=== PATIENT | male | born 1975 ===

== ENCOUNTER 2016-07-26 14:53 | Emergency (ER) | payer OTHER ==
[2016-07-26 15:36] LABS: BASOPHILS 0.3 % (0.0-2.0); EOSINOPHILS 0.2 % (0.0-6.0); HEMATOCRIT 50.4 % (42.0-54.0); HEMOGLOBIN 17.4 g/dL (14.0-18.0); LYMPHOCYTES 26.1 % (20.0-40.0); LYMPHOCYTES# 2.9 X 10^3uL (0.8-3.8); MEAN CORPUS. HGB CONCENTRATION 34.5 g/dL (32.0-36.0); MEAN CORPUSCULAR HEMOGLOBIN 30.4 pg (29.0-35.0); MEAN PLATELET VOLUME 7.6 fL (7.4-10.4); MONOCYTES 7.4 % (2.0-10.0); MONOCYTES# 0.8 X 10^3uL (0.2-1.0); NEUTROPHILS# 7.3 X 10^3uL (2.6-6.7); PLATELET COUNT 296 X 10^3uL (130-440); RED BLOOD COUNT 5.73 X 10^6uL (4.20-6.10); RED CELL DISTRIBUTION WIDTH 11.9 % (11.5-14.5)
[2016-07-26 15:37] LABS: BLOOD UREA NITROGEN 18 mg/dL (9-20); CALCIUM 9.5 mg/dL (8.4-10.2); CHLORIDE 101 mmol/L (98-107); CREATININE 0.8 mg/dL (0.7-1.3); EST GLOMERULAR FILTRATION RATE > 60 mL/min; GLUCOSE 117 mg/dL (70-100); POTASSIUM 3.8 mmol/L (3.5-5.1); SODIUM 138 mmol/L (137-145)
--- NOTE | 2016-07-26 16:26 | CT REPORT ---
Radiology report CT neck with contrast July 26, 2016 PROCEDURE: 100 cc Isovue 370 was administered without complication. Imaging to the neck was performed . FINDINGS: History is of left neck pain Lung apices are clear. The aortic arch and origin of the great vessels appear normal. The thyroid gla nd is normal. The submandibular glands, and parotid glands are normal. The inferior aspect of the brain appears normal. Visualized paranasal sinuses and mastoid air cells a re clear. The prevertebral and parapharyngeal spaces are normal. The epiglottis, airway, and larynx a ppear normal. Scattered subcentimeter adenopathy is noted bilaterally. No significant enlarged adenop athy. There is normal alignment to the cervical spine. Heterogeneous appearance to the left jugular v ein is likely a mixture of contrast and unopacified blood. IMPRESSION: Unremarkable CT of the neck. No significant adenopathy, mass, or other areas to suggest i nfection. Report called to Dr. pandey. Final Electronic Signature: This report was electronically signed by Emory Boland MD on 07/26/2016 4: 24 PM. wes /
--- NOTE | 2016-07-26 17:08 | CT REPORT ---
Radiology report Head CT without contrast July 26, 2016 CLINICAL HISTORY: vertigo PROCEDURE: Routine noncontrast axial imaging of the brain was performed. FINDINGS: The brain volume and ventricular size are normal. There are no focal parenchymal abnormalit ies. No hemorrhage or infarction. There is no subdural or epidural collection, midline shift or mass effect. Skull is intact. The sinuses are clear. IMPRESSION: Negative head CT. Report called to Dr. pandey. Final Electronic Signature: This report was electronically signed by Emory Boland MD on 07/26/2016 5: 06 PM. wes /
--- NOTE | 2016-07-26 17:24 | ER PHYSICIAN DOCUMENTATION ---
Physician Documentation [facility] Name:Odilon Hill Age:41 yrs Sex:Male :1975 Arrival Date:07/26/2016 Time:14:53 Bed1 Private MD:Robbi Ramirez ED, Scott Disposition: 07/26/16 17:12 Discharged to Home/Self Care. Impression: Dizziness - Vertigo. - Condition is Fair. - Discharge Instructions: DIZZINESS, Unk Cause. - Medical Reconciliation form form. - Follow up: Robbi Ramirez MD; When: 1 - 2 days; Reason: Recheck today's complaints. - Problem is an acute exacerbation. - Symptoms are unchanged. HPI: 07/26 17:13 This 41 yrs old /[place] Male presents to ER via Private Vehicle with sc complaints of Neck Pain, >24Hrs Old. 17:13 The patient or guardian complains of pain, that is acute. The symptoms are located on sc the left base of the skull. Onset: The symptom(s)/episode began/occurred 3 day(s) ago. Context: The problem was sustained at home, The neck injury/problem resulted from URI symptoms. Associated signs and symptoms: Pertinent positives: mild dizziness and ataxia, no change in vision or stein or trauma or hearing, positive some frontal sinus pressure earlier. Historical: - Allergies: No known drug Allergies; - Home Meds: 1. None - PMHx: None; - PSHx: None; - Tetanus: > 10 years. - Ebola Screening: : Patient denies exposure to infectious person. Patient denies travel to an Ebola-affected area in the 21 days before illness onset. . - Social history: Smoking status: Patient states was never smoker of tobacco. Patient/guardian denies using alcohol, marijuana. ROS: 17:15 Constitutional: Negative for fever, chills, and weight loss. sc Eyes: Negative for injury, pain, redness, and discharge. Cardiovascular: Negative for chest pain, palpitations, and edema. Respiratory: Negative for shortness of breath, cough, wheezing, and pleuritic chest pain. Abdomen/GI: Negative for abdominal pain, nausea, vomiting, diarrhea, and constipation. Back: Negative for injury and pain. : Negative for injury, bleeding, discharge, and swelling. MS/Extremity: Negative for injury and deformity. 17:15 Skin: Negative for injury, rash, and discoloration. sc 17:15 ENT: Positive for nasal discharge. 17:15 Neck: Positive for swollen nodes, tenderness, Negative for injury or acute deformity, mass, pain with movement. 17:15 Neuro: Positive for dizziness, gait disturbance. Exam: Constitutional: This is a well developed, well nourished patient who is awake, alert, and in no acute distress. Head/Face: Normocephalic, atraumatic. Eyes: Pupils equal round and reactive to light, extra-ocular motions intact. Lids and lashes normal. Conjunctiva and sclera are non-icteric and not injected. Cornea within normal limits. Periorbital areas with no swelling, redness, or edema. ENT: Nares patent. No nasal discharge, no septal abnormalities noted. Tympanic membranes are normal and external auditory canals are clear. Oropharynx with no redness, swelling, or masses, exudates, or evidence of obstruction, uvula midline. Mucous membranes moist. Neck: Trachea midline, no thyromegaly or masses palpated, and no cervical lymphadenopathy. Supple, full range of motion without nuchal rigidity, or vertebral point tenderness. No meningismus. Chest/axilla: Normal chest wall appearance and motion. Nontender with no deformity. No lesions are appreciated. Cardiovascular: Regular rate and rhythm with a normal S1 and S2. No gallops, murmurs, or rubs. Normal PMI, no JVD. No pulse deficits. Respiratory: Lungs have equal breath sounds bilaterally, clear to auscultation and percussion. No rales, rhonchi or wheezes noted. No increased work of breathing, no retractions or nasal flaring. Abdomen/GI: Soft, non-tender, with normal bowel sounds. No distension or tympany. No guarding or rebound. No evidence of tenderness throughout. Back: No spinal tenderness. No costovertebral tenderness. Full range of motion. Skin: Warm, dry with normal turgor. Normal color with no rashes, no lesions, and no evidence of cellulitis. 17:16 MS/ Extremity: Pulses equal, no cyanosis. Neurovascular intact. Full, normal range sc of motion, negative Homans's, calves equal bilaterally. 17:16 Neuro: Cerebellar function: Romberg testing is abnormal, cannot stand with eyes closed, falls to left, walks to left with gait as well, Motor: is normal, Sensation: is normal, Gait: ataxic, Deep tendon reflexes are 2+ (normal) in the right patellar and left patellar, Babinski testing is normal. 07/27 09:04 Neck: External neck: swelling, of the , C-spine: Nexus Criteria: no distracting injury sc is present. 09:08 ENT: TM's: are normal, bulging, is not appreciated, Nose: nasal drainage, is not sc appreciated. 09:08 Neck: C-spine: no acute changes, vertebral tenderness, is not appreciated, ROM/movement: is normal, pain, that is mild, Lymph nodes: lymphadenopathy is appreciated, posterior cervical nodes. Vital Signs: 07/26 14:55 BP 136 / 89; Pulse 67; Resp 16; Temp 98.3; Pulse Ox 92% on R/A; Pain 1/10; st 16:30 BP 150 / 82; Pulse 69; Pulse Ox 91% on R/A; st 16:38 BP 134 / 84; st Cory Coma Score: 07/27 09:08 Eye Response: spontaneous(4). Verbal Response: oriented(5). Motor Response: obeys sc commands(6). Total: 15. MDM: 07/26 15:16 Patient medically screened. wa 17:17 Differential diagnosis: cervical strain, torticollis, viral meningitis, vs other sc central causes of vertigo vs ataxia, more consistent with recent uri and [facility] and back up today. Data reviewed: vital signs, nurses notes, old medical records, lab test result(s), radiologic studies, CT scan, and as a result, I will discharge patient. Counseling: I had a detailed discussion with the patient and/or guardian regarding: the historical points, exam findings, and any diagnostic results supporting the discharge/admit diagnosis, lab results, radiology results, the need for outpatient follow up, with the patient's primary care provider. 07/26 15:39 Order name: BASIC METABOLIC PANEL; Complete Time: 16:16 EDMS 07/26 16:16 Interpretation: Normal. sc 07/26 15:39 Order name: CBC AUTO DIF, MDIF/RMOR IF IND; Complete Time: 16:16 EDMS 07/26 16:16 Interpretation: Abnormal: WHITE BLOOD COUNT 11.0. wa 07/26 15:17 Order name: CT Scan;neck Softtissw/[id number] st 07/26 16:28 Order name: CAT SCAN;NECK SOFT TISSW/[id number] EDMS 07/26 17:09 Order name: CAT SCAN; HEAD W/O CON [id number] EDMS Dispensed Medications: 16:30 Drug: NS 0.9% 1000 ml; Route: IV; Rate: 250 ml/hr; Site: right antecubital; 17:22 Follow up: IV Status: Infusion discontinued; IV Intake: 300ml st Signatures: Moraima Love RN RN Jigar Yee MD MD wa
--- NOTE | 2016-07-26 17:24 | ER NURSING DOCUMENTATION ---
Nurse's Notes [facility] Name:Odilon Hill Age:41 yrs Sex:Male :1975 Arrival Date:07/26/2016 Time:14:53 Bed1 Private MD:Robbi Ramirez Diagnosis:Dizziness - Vertigo Presentation: 07/26 14:55 Presenting complaint: Patient states: pt states he has had left neck pain for [address] two days ago pt had 30 min of blurred vision and then today pt states he has not been able to walk. He leans to the left and has no balance he also has some pressure in his head. Transition of care: Home. Care prior to arrival: None. 14:55 Method Of Arrival: Private Vehicle st 15:05 Acuity: LARON 2 st 15:06 Notified ED Physician of Dr. Shaw notified. st Triage Assessment: 14:55 General: Appears in no apparent distress, Behavior is cooperative. Pain: Complains of st pain in headache Pain currently is 1 out of 10 on a pain scale. Pain began started about 10 min ago. Neuro: Level of Consciousness is awake, alert, Oriented to person, place, time, event, Customer Contact Representative are equal bilaterally Moves all extremities. Facial symmetry appears normal, pt has no change in sesation.. Neuro: Reports troubles with his balance.. Cardiovascular: No deficits noted. Respiratory: No deficits noted. GI: No deficits noted. Musculoskeletal: pt lists to the left when he walks but is able to correct himself. Historical: - Allergies: No known drug Allergies; - Home Meds: 1. None - PMHx: None; - PSHx: None; - Tetanus: > 10 years. - Ebola Screening: : Patient denies exposure to infectious person. Patient denies travel to an Ebola-affected area in the 21 days before illness onset. . - Social history: Smoking status: Patient states was never smoker of tobacco. Patient/guardian denies using alcohol, marijuana. Screenin:12 Infectious Disease Risk Other: hx of hep B. Abuse screen: Denies threats or abuse. st Denies injuries from another. pt feels safe at home. Nutritional screening: No deficits noted. Assessment: 17:09 General: pt resting quietly. . st Vital Signs: 14:55 BP 136 / 89; Pulse 67; Resp 16; Temp 98.3; Pulse Ox 92% on R/A; Pain 1/10; st 16:30 BP 150 / 82; Pulse 69; Pulse Ox 91% on R/A; st 16:38 BP 134 / 84; st Burket Coma Score: 07/27 09:08 Eye Response: spontaneous(4). Verbal Response: oriented(5). Motor Response: obeys sc commands(6). Total: 15. ED Course: 07/26 14:55 Patient arrived in ED. ama 14:55 Robbi Ramirez MD is Private Physician. ama 14:55 Valuables Remains with patient Patient has correct armband on for positive st identification. Bed in low position. Pulse Ox - RN Monitoring Only NIBP On - RN Monitoring Only. 15:05 Moraima Love, RN is Primary Nurse. st 15:[address] 15:16 Jigar Shaw MD is Attending Physician. sc 15:17 Inserted peripheral IV: 20 gauge in right antecubital area and blood collected. st 15:[address] pm1 15:42 CT Scan;neck Softtissw/[id number] Sent. pm1 16:14 Patient moved back from CT. ms 17:11 Robbi Ramirez MD is Referral Physician. sc Administered Medications: 16:30 Drug: NS 0.9% 1000 ml; Route: IV; Rate: 250 ml/hr; Site: right antecubital; st 17:22 Follow up: IV Status: Infusion discontinued; IV Intake: 300ml st Intake: 17:22 IV: 300ml; Total: 300ml. st Outcome: 17:12 Discharge ordered by . ok 17:20 Discharged to home ambulatory, with help from family st 17:20 Condition: stable 17:20 Discharge instructions given to patient, Instructed on discharge instructions, follow up and referral plans. 17:21 IV D/Rey st 17:23 Patient [address] the ED. st 03 07:45 Discharge F/U Call: Spoke with: other: Name: spouse called to say her 's nf symptoms were worsening today and they would like to see a neurologist as was offered yesterday; I notified DrChew by phone; I called the back and asked her which hospital they would like to go to and she chose [facility]; CT scan from yesterday "pushed" to [facility], and ER records from yesterday faxed to [facility] ER per patient's verbal request and 's verbal ok Signatures: Moraima Love RN RN st Friel, Nicole, RN RN nf Chew, Scott, MD MD sc [facility] Alexi Moore pm1 Amari Tomas, Reg Reg ama
== END 2016-07-26 17:24 | disposition home or self-care (01) ==
LOC: ER 14:53
DX: R42 Dizziness and giddiness (principal); M54.2 Cervicalgia; R59.0 Localized enlarged lymph nodes; R26.0 Ataxic gait
CPT/HCPCS: 70450; 70491; 80048; 85025; 96360; 99284

== ENCOUNTER 2016-09-08 02:15 | Emergency (ER) | payer OTHER ==
[2016-09-08] MEDS ORDERED: OXYMETAZOLINE 0.05% NASAL 15 SPRAYS/15 ML BTL NASAL ONE (02:41)
[2016-09-08] MEDS ORDERED: PHENYLEPHRINE 1% NASAL 15 SPRAYS/15 ML BTL NASAL ONE (02:42)
[2016-09-08] MEDS ORDERED: SILVER NITRATE 1 APP APP TOPICAL ONE (02:51)
[2016-09-08] MEDS ORDERED: AMOXICILLIN 250 MG CAPSULE PO ONE (03:08)
--- NOTE | 2016-09-08 03:18 | ER PHYSICIAN DOCUMENTATION ---
Physician Documentation [facility] Name:Odilon Hill Age:41 yrs Sex:Male :1975 Arrival Date:09/08/2016 Time:02:15 Bed2 Private MD:Sky Thomas ED, Chris Disposition: 09/08/16 03:02 Discharged to Home/Self Care. Impression: Anterior Epistaxis. - Condition is Good. - Discharge Instructions: EPISTAXIS (Adult), NASAL PACKING, Anterior (Removable). - Prescriptions for Amoxicillin 500 mg Oral - take 1 capsule by ORAL route every 8 hours for 3 days; 10 tablet. - Medical Reconciliation form form. - Follow up: Emergency Department; When: 09/11/2016; Reason: Recheck today's complaints, Continuance of care. - Problem is new. - Symptoms are resolved. - Notes: Drink plenty of fluids. Continue your Coumadin and Lovenox until directed by Dr. Thomas. Take Amoxicillin 500mg by mouth every 8 hours for 3 days. Return to the ER in3 days for packing removal HPI: 09/08 02:40 This 41 yrs old /[place] Male presents to ER via Walk In with complaints of cd Nose Bleed. 02:40 The patient presents with a nose bleed, that is apparently anterior, from the right cd nare, occurred dry air, spontaneously, that is continuous small amount without clots, causative factors include: Coumadin therapy, previous HX of nosebleeds, and the bleeding is not resolved and continues in ER. Onset: The symptom(s)/episode began/occurred acutely, 2 hour(s) ago. Associated signs and symptoms: The patient has no apparent associated signs or symptoms. Severity of symptoms: At their worst the symptoms were moderate in the emergency department the symptoms have improved mildly. The patient has experienced similar episodes in the past. 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 He has been doing very well post-CVA. Patient is on Plavix and Lovenox. Coumadin recently started by Dr. Thomas 3 days ago.. Historical: - Allergies: No known drug Allergies; - Home Meds: 1. Lovenox 100 mg/mL subcutaneous syrg 0.4 mL once daily 2. Coumadin Oral 3. gabapentin 300 mg oral cap 4. metformin 500 mg oral tab 1 tab 2 times per day with morning and evening meals 5. atorvastatin 40 mg oral tab 1 tab once daily 6. clopidogrel 75 mg oral tab 1 tab once daily 7. dextromethorphan HBr oral 8. pseudoephedrine HCl 30 mg oral tab 9. losartan oral - PMHx: ischemic stroke; - PSHx: None; - Tetanus: < 10 years. - Ebola Screening: : Patient negative for fever greater than or equal to 101.5 degrees Fahrenheit, and additional compatible Ebola Virus Disease symptoms. Patient denies exposure to infectious person. Patient denies travel to an Ebola-affected area in the 21 days before illness onset. No symptoms or risks identified at this time. . - Immunization history: Flu Vaccine < 1 year. - Social history: Smoking status: Patient states was never smoker of tobacco. Patient uses alcohol occasionally. ROS: 03:08 Eyes: Negative for injury, pain, redness, discharge, blurry vision and loss of vision. cd 03:08 Neck: Negative for injury, pain, stiffness and swelling. cd 03:08 Constitutional: Negative for chills, fever. 03:08 ENT: Positive for nose bleed, Negative for rhinorrhea, sinus congestion, sinus pain, sore throat. 03:08 All other systems are negative. Exam: Head/Face: Normocephalic, atraumatic. Eyes: Pupils equal round and reactive to light, extra-ocular motions intact. Lids and lashes normal. Conjunctiva and sclera are non-icteric and not injected. Cornea within normal limits. Periorbital areas with no swelling, redness, or edema. 03:08 Neck: Trachea midline, no thyromegaly or masses palpated, and no cervical cd lymphadenopathy. Supple, full range of motion without nuchal rigidity, or vertebral point tenderness. No Meningismus. 03:08 Constitutional: The patient appears alert, awake, non-diaphoretic, non-toxic, well developed, well nourished. 03:08 ENT: Nose: External nose: no obvious acute abnormality, Nasal septum: is midline, Nasal mucosa: normal, bleeding, is seen from the right nare, and is minimal, clotted blood, is not appreciated. Vital Signs: 02:25 BP 150 / 100; Pulse 84; Resp 16; Temp 98.3; Pulse Ox 96% on R/A; Weight 102.06 kg; mk2 Height 5 ft. 9 in. (175.26 cm); Pain 0/10; 02:25 Body Mass Index 33.23 (102.06 kg, 175.26 cm) mk2 Yannick Coma Score: 03:08 Eye Response: spontaneous(4). Verbal Response: oriented(5). Motor Response: obeys cd commands(6). Total: 15. Procedures: 03:09 Epistaxis treatment: A small amount of bleeding noted from right nare. Treated using cd anterior packing, nasal tampon, rhino rocket, Bleeding stopped. MDM: 03:02 Patient medically screened. cd 03:10 Data reviewed: vital signs, nurses notes, old medical records, lab test result(s), and cd as a result, I will discharge patient. Data interpreted: Pulse oximetry: on room air is 96 %. Interpretation: normal. Counseling: I had a detailed discussion with the patient and/or guardian regarding: the historical points, exam findings, and any diagnostic results supporting the discharge/admit diagnosis, lab results, the need for outpatient follow up, for a recheck, with the patient's primary care provider, to return to the emergency department if symptoms worsen or persist or if there are any questions or concerns that arise at home. Response to treatment: the patient's symptoms have resolved after treatment, the patient's condition has returned to base line, the patient is now symptom free, and as a result, I will discharge patient. 09/08 02:38 Order name: INR W/ CAPI DRAW; Complete Time: 03:12 EDMS 09/08 03:11 Interpretation: Abnormal: INR W/ CAPI DRAW 2.9; On Coumadin. cd Dispensed Medications: 02:53 Drug: Aram-Synephrine Cato 0.5 % 1 sprays; Route: Intranasal; Site: right nare; mk2 02:55 CANCELLED (Physician Discretion): Silver Nitrate Applicators 1 application Topical once mk2 02:59 Drug: Amoxicillin 500 mg; Route: PO; mk2 03:15 Follow up: Response: No adverse reaction mk2 Point of Care Testing: Blood Glucose: 02:29 Blood Glucose: 158 mg/dL; mk2 Ranges: Critical Glucose Levels:Adult <50 mg/dl or >400 mg/dl <40 mg/dl or >180 mg/dl Signatures: Baal Peralta MD MD cd Kruger, Meg, RN RN mk2
--- NOTE | 2016-09-08 03:18 | ER NURSING DOCUMENTATION ---
Nurse's Notes [facility] Name:Odilon Hill Age:41 yrs Sex:Male :1975 Arrival Date:09/08/2016 Time:02:15 Bed2 Private MD:Sky Thomas Diagnosis:Anterior Epistaxis Presentation: 09/08 02:18 Presenting complaint: Patient states: I'm on blood thinners and I've had a bloody nose 2 since 0030. Transition of care: Home. 02:18 Acuity: LARON 3 2 02:18 Method Of Arrival: Walk In [facility] 02:25 Care prior to arrival: None. mk2 Triage Assessment: 02:24 General: Appears in no apparent distress, Behavior is cooperative, pleasant. Pain: mk2 Denies pain. EENT: Reports blood dripping on R side of nose into the throat. . Historical: - Allergies: No known drug Allergies; - Home Meds: 1. Lovenox 100 mg/mL subcutaneous syrg 0.4 mL once daily 2. Coumadin Oral 3. gabapentin 300 mg oral cap 4. metformin 500 mg oral tab 1 tab 2 times per day with morning and evening meals 5. atorvastatin 40 mg oral tab 1 tab once daily 6. clopidogrel 75 mg oral tab 1 tab once daily 7. dextromethorphan HBr oral 8. pseudoephedrine HCl 30 mg oral tab 9. losartan oral - PMHx: ischemic stroke; - PSHx: None; - Tetanus: < 10 years. - Ebola Screening: : Patient negative for fever greater than or equal to 101.5 degrees Fahrenheit, and additional compatible Ebola Virus Disease symptoms. Patient denies exposure to infectious person. Patient denies travel to an Ebola-affected area in the 21 days before illness onset. No symptoms or risks identified at this time. . - Immunization history: Flu Vaccine < 1 year. - Social history: Smoking status: Patient states was never smoker of tobacco. Patient uses alcohol occasionally. Screenin:26 Infectious Disease Risk None. Abuse screen: Denies threats or abuse. Nutritional 2 screening: No deficits noted. Assessment: 02:26 See Triage Assessment done by same RN. mk2 Vital Signs: 02:25 BP 150 / 100; Pulse 84; Resp 16; Temp 98.3; Pulse Ox 96% on R/A; Weight 102.06 kg; mk2 Height 5 ft. 9 in. (175.26 cm); Pain 0/10; 02:25 Body Mass Index 33.23 (102.06 kg, 175.26 cm) mk2 Luther Coma Score: 03:08 Eye Response: spontaneous(4). Verbal Response: oriented(5). Motor Response: obeys cd commands(6). Total: 15. ED Course: 02:17 Patient arrived in ED. em2 02:17 Sky Thomas MD is Private Physician. em2 02:17 Danette Aguillon, RN is Primary Nurse. mk2 02:18 Triage completed. mk2 02:26 Arm band placed on Bed in low position Call Light in Reach Gowned HOB Elevated Side mk2 rails up x1. 02:26 Nosebleed Care Nasal Clamp Applied. mk2 02:28 Bedside INR 2.9. mk2 02:59 Bala Peralta MD is Attending Physician. cd 03:17 Valuables Remains with patient. mk2 Administered Medications: 02:53 Drug: Aram-Synephrine Hernando 0.5 % 1 sprays; Route: Intranasal; Site: right nare; mk2 02:55 CANCELLED (Physician Discretion): Silver Nitrate Applicators 1 application Topical once mk2 02:59 Drug: Amoxicillin 500 mg; Route: PO; mk2 03:15 Follow up: Response: No adverse reaction mk2 Point of Care Testing: Blood Glucose: 02:29 Blood Glucose: 158 mg/dL; mk2 Ranges: Outcome: 03:02 Discharge ordered by . cd 03:16 Discharged to home ambulatory. mk2 03:16 Condition: improved 03:16 Discharge instructions given to patient, Instructed on discharge instructions, follow up and referral plans. medication usage, Prescriptions given X 1. 03:17 Patient left the ED. mk2 Signatures: Bala Peralta MD MD cd Kruger, Meg, RN RN mk2 Iza-reg, Laurel-michelet em2
== END 2016-09-08 03:18 | disposition home or self-care (01) ==
LOC: ER 02:15
DX: R04.0 Epistaxis (principal); Z79.01 Long term (current) use of anticoagulants; Z86.73 Personal history of transient ischemic attack (TIA), and cerebral infarction without residual deficits; Z79.02 Long term (current) use of antithrombotics/antiplatelets; Z79.899 Other long term (current) drug therapy
CPT/HCPCS: 30903; 85610; 99283

== ENCOUNTER 2016-09-08 18:02 | Emergency (ER) | payer OTHER ==
--- NOTE | 2016-09-09 13:03 | ER NURSING DOCUMENTATION ---
Nurse's Notes [facility] Name:Odilon Hill Age:41 yrs Sex:Male :1975 Arrival Date:09/08/2016 Time:18:02 Bed2 Private MD: Diagnosis:Epistaxis - Nose Bleed Presentation: 09/08 18:09 Presenting complaint: Patient states: Pt here for recheck of nasal packing placed this ma am States is not comfortable and wants to remove it himself. Transition of care: Home. 18:09 Acuity: LARON 4 ma 18:09 Method Of Arrival: Private Vehicle ma Triage Assessment: 18:11 General: Appears in no apparent distress, Behavior is cooperative. Pain: Denies pain. ma Historical: - Allergies: No known drug Allergies; - Home Meds: 1. Lovenox 100 mg/mL subcutaneous syrg 0.4 mL once daily 2. Coumadin Oral 3. gabapentin 300 mg oral cap 4. metformin 500 mg oral tab 1 tab 2 times per day with morning and evening meals 5. atorvastatin 40 mg oral tab 1 tab once daily 6. clopidogrel 75 mg oral tab 1 tab once daily 7. dextromethorphan HBr oral 8. pseudoephedrine HCl 30 mg oral tab 9. losartan oral - Tetanus: unknown. - Ebola Screening: : No symptoms or risks identified at this time. . - Immunization history: Flu Vaccine unknown. - Social history: Smoking status: unknown if patient ever smoked tobacco. Screenin:12 Infectious Disease Risk None. Abuse screen: Denies threats or abuse. Nutritional ma screening: No deficits noted. Assessment: 18:17 Reassessment: Per Daily, pt advised that he will most likely re-bleed if packing is ma removed this early Pt agreeable to leave packing intact. Vital Signs: 18:11 BP 134 / 96; Pulse 84; Resp 18; Temp 98.0; Pulse Ox 92% on R/A; Pain 0/10; ma ED Course: 18:04 Patient arrived in ED. ds 18:09 Dory Frey, RN is Primary Nurse. ma 18:10 Triage completed. ma 18:12 Valuables Given to family. Patient has correct armband on for positive identification. ma Bed in low position. Call light in reach. Adult w/ patient. Administered Medications: No medications were administered Outcome: 18:18 Discharged to home ma 18:18 Condition: stable 18:18 Instructed on discharge instructions, follow up and referral plans. 18:18 No charge visit due to Re check. 18:21 Discharge ordered by . ciro 18:21 Patient left the ED. ciro 09/09 15:06 Discharge F/U Call: Spoke with: patient. Overall Care on a scale of 1-10 with 10 ma being the best care, you rate our care as: Other comments: Pt states he is still bothered by the packing but tolerating States care was very good Signatures: Dory Frey, RN RN ciro Srot, Viv, Reg Reg ds
== END 2016-09-09 13:03 | disposition home or self-care (01) ==
LOC: ER 18:02
DX: Z48.00 Encounter for change or removal of nonsurgical wound dressing (principal); R04.0 Epistaxis

== ENCOUNTER 2016-09-10 11:28 | Emergency (ER) | payer OTHER ==
[2016-09-10] MEDS ORDERED: PHENYLEPHRINE 1% NASAL 15 SPRAYS/15 ML BTL NASAL ONE (13:24)
[2016-09-10] MEDS ORDERED: SILVER NITRATE 1 APP APP TOPICAL ONE (13:24)
[2016-09-10] MEDS ORDERED: TETRACAINE/BENZOCAINE/BUTAMBEN 1 SPRAY CAN TOPICAL ONE (13:25)
--- NOTE | 2016-09-10 13:53 | ER PHYSICIAN DOCUMENTATION ---
Physician Documentation [facility] Name:Odilon Hill Age:41 yrs Sex:Male :1975 Arrival Date:09/10/2016 Time:11:28 Bed2 Private MD: Jigar Cash Disposition: 09/10/16 13:31 Discharged to Home/Self Care. Impression: Anterior Epistaxis. - Condition is Good. - Discharge Instructions: EPISTAXIS (Adult), NASAL PACKING, Anterior (Removable). - Medical Reconciliation form form. - Follow up: Guillermo Mueller MD; When: 4- 6 days; Reason: Recheck today's complaints. - Problem is new. - Symptoms have improved. HPI: 09/10 13:25 This 41 yrs old /[place] Male presents to ER via Private Vehicle with sc complaints of Foreign Body In Nose. 13:25 The patient presents with here for packing removal, removed by nurse, obs'd and then sc bleeding recurred. Onset: The symptom(s)/episode began/occurred 2 day(s) ago. Modifying factors: the symptoms are aggravated by coumadin, lovenox, plavix and asa. Associated signs and symptoms: The patient has no apparent associated signs or symptoms, Loss of consciousness: the patient experienced no loss of consciousness. The patient has experienced similar episodes in the past, chronically. Historical: - Allergies: No known drug Allergies; - Home Meds: 1. Coumadin Oral 2. gabapentin 300 mg oral cap 3. metformin 500 mg oral tab 1 tab 2 times per day with morning and evening meals 4. atorvastatin 40 mg oral tab 1 tab once daily 5. clopidogrel 75 mg oral tab 1 tab once daily 6. dextromethorphan HBr oral 7. pseudoephedrine HCl 30 mg oral tab 8. losartan oral - PMHx: Epistaxis - Nose Bleed (September 08, 2016); Anterior Epistaxis (September 08, 2016); Dizziness - Vertigo (July 26, 2016); - PSHx: NONE; - Tetanus: < 10 years. - Ebola Screening: : Patient negative for fever greater than or equal to 101.5 degrees Fahrenheit, and additional compatible Ebola Virus Disease symptoms. Patient denies exposure to infectious person. Patient denies travel to an Ebola-affected area in the 21 days before illness onset. No symptoms or risks identified at this time. . - Immunization history: Unable to Obtain. - Social history: Smoking status: Patient states was never smoker of tobacco. ROS: 13:29 Constitutional: Negative for fever, chills, and weight loss. sc Eyes: Negative for injury, pain, redness, and discharge. Neck: Negative for injury, pain, and swelling. Cardiovascular: Negative for chest pain, palpitations, and edema. Respiratory: Negative for shortness of breath, cough, wheezing, and pleuritic chest pain. Abdomen/GI: Negative for abdominal pain, nausea, vomiting, diarrhea, and constipation. Back: Negative for injury and pain. MS/Extremity: Negative for injury and deformity. Skin: Negative for injury, rash, and discoloration. 13:29 Neuro: Negative for headache, weakness, numbness, tingling, and seizure. sc 13:29 ENT: Positive for nose bleed. Exam: Constitutional: This is a well developed, well nourished patient who is awake, alert, and in no acute distress. Head/Face: Normocephalic, atraumatic. Eyes: Pupils equal round and reactive to light, extra-ocular motions intact. Lids and lashes normal. Conjunctiva and sclera are non-icteric and not injected. Cornea within normal limits. Periorbital areas with no swelling, redness, or edema. Chest/axilla: Normal chest wall appearance and motion. Nontender with no deformity. No lesions are appreciated. Cardiovascular: Regular rate and rhythm with a normal S1 and S2. No gallops, murmurs, or rubs. Normal PMI, no JVD. No pulse deficits. Respiratory: Lungs have equal breath sounds bilaterally, clear to auscultation and percussion. No rales, rhonchi or wheezes noted. No increased work of breathing, no retractions or nasal flaring. Abdomen/GI: Soft, non-tender, with normal bowel sounds. No distension or tympany. No guarding or rebound. No evidence of tenderness throughout. Back: No spinal tenderness. No costovertebral tenderness. Full range of motion. 13:29 Skin: Warm, dry with normal turgor. Normal color with no rashes, no lesions, and no sc evidence of cellulitis. 13:29 ENT: Nose: bleeding, is seen from the right nare, and is moderate, no septal hematoma is appreciated. Vital Signs: 11:54 BP 129 / 84; Pulse 82; Resp 18; Temp 98.3; Pulse Ox 94% on R/A; Pain 0/10; rs Procedures: 13:29 Epistaxis treatment: A moderate amount of bleeding noted from Treated using sc cauterization, nasal clamp, anterior packing, Bleeding stopped. MDM: 13:25 Patient medically screened. ny 13:30 Differential diagnosis: spontaneous epistaxis. Data reviewed: vital signs, nurses ny notes, and as a result, I will discharge patient. Counseling: I had a detailed discussion with the patient and/or guardian regarding: the historical points, exam findings, and any diagnostic results supporting the discharge/admit diagnosis, the need for outpatient follow up, for a recheck. Dispensed Medications: No medications were administered Signatures: Liya Alonzo RN RN rs Jigar Shaw MD MD ny
--- NOTE | 2016-09-10 13:53 | ER NURSING DOCUMENTATION ---
Nurse's Notes [facility] ([place], [place]) Name:Odilon Hill Age:41 yrs Sex:Male :1975 Arrival Date:09/10/2016 Time:11:28 Bed2 Private MD: Diagnosis:Anterior Epistaxis Presentation: 09/10 11:34 Presenting complaint: Patient states: No problem with the nasal packing except it being rs uncomfortable. No further bleeding, or drainage. Transition of care: patient was not received from another setting of care. 11:34 Acuity: LARON 5 rs 11:34 Method Of Arrival: Private Vehicle rs Triage Assessment: 11:48 General: Appears in no apparent distress, comfortable, well developed, well nourished, rs well groomed, Behavior is cooperative, pleasant. Pain: Denies pain. EENT: Nares Two rhino rockets in right nare. No drainage. Very dried out. Moistened with saline. . 11:53 Neuro: No deficits noted. Level of Consciousness is awake, alert, Oriented to person, rs place, time, event. Cardiovascular: No deficits noted. Capillary refill < 3 seconds Pulses are 3+ in left radial artery. Respiratory: No deficits noted. Respiratory effort is even, unlabored, Respiratory pattern is regular, symmetrical. Derm: No deficits noted. Skin is pink, warm & dry. Historical: - Allergies: No known drug Allergies; - Home Meds: 1. Coumadin Oral 2. gabapentin 300 mg oral cap 3. metformin 500 mg oral tab 1 tab 2 times per day with morning and evening meals 4. atorvastatin 40 mg oral tab 1 tab once daily 5. clopidogrel 75 mg oral tab 1 tab once daily 6. dextromethorphan HBr oral 7. pseudoephedrine HCl 30 mg oral tab 8. losartan oral - PMHx: Epistaxis - Nose Bleed (September 08, 2016); Anterior Epistaxis (September 08, 2016); Dizziness - Vertigo (July 26, 2016); - PSHx: NONE; - Tetanus: < 10 years. - Ebola Screening: : Patient negative for fever greater than or equal to 101.5 degrees Fahrenheit, and additional compatible Ebola Virus Disease symptoms. Patient denies exposure to infectious person. Patient denies travel to an Ebola-affected area in the 21 days before illness onset. No symptoms or risks identified at this time. . - Immunization history: Unable to Obtain. - Social history: Smoking status: Patient states was never smoker of tobacco. Screenin:00 Infectious Disease Risk None. Abuse screen: Denies threats or abuse. Nutritional rs screening: No deficits noted. Vital Signs: 11:54 BP 129 / 84; Pulse 82; Resp 18; Temp 98.3; Pulse Ox 94% on R/A; Pain 0/10; rs ED Course: 11:33 Patient arrived in ED. 11:34 Liya Alonzo RN is Primary Nurse. rs 11:45 Triage completed. rs 12:05 Notified ED Physician of patient's arrival and chief complaint. Dr. Shaw notified. Arm rs band placed on Bed in low position Call Light in Reach Gowned HOB Elevated. 13:25 Jigar Shaw MD is Attending Physician. ks 13:30 Guillermo Mueller MD is Referral Physician. ks 13:46 Door closed. Noise minimized. Verbal reassurance given. rs 13:47 nasal packing removed after soaking for 40 min. Developed a slow drip of blood. Clamp rs on. Administered Medications: No medications were administered Outcome: 13:31 Discharge ordered by . ks 13:51 Discharged to home ambulatory. rs 13:51 Condition: improved 13:51 Instructed on discharge instructions, Demonstrated understanding of instructions. 13:51 Patient left the ED. rs 04 10:37 Discharge F/U Call: Spoke with: patient. Have you made a f/u appointment? yes Overall lp Care on a scale of 1-10 with 10 being the best care, you rate our care as: the rating of 10. Signatures: Liya Alonzo RN RN Dennise Shafer RN RN Jigar Shaw MD MD sc Jones, Carissa
== END 2016-09-10 13:52 | disposition home or self-care (01) ==
LOC: ER 11:28
DX: R04.0 Epistaxis (principal); Z48.00 Encounter for change or removal of nonsurgical wound dressing; Z79.01 Long term (current) use of anticoagulants; Z79.899 Other long term (current) drug therapy
CPT/HCPCS: 30901; 30903; 99281